=== PATIENT | male | born 1980 ===

== ENCOUNTER 2024-05-31 17:50 | Emergency (ER) | payer OTHER ==
[~2024-05-31] VITALS: Ht 172.7 cm; Wt 107.2 kg
[2024-05-31] MEDS ORDERED: AMOXICILLIN500 MG PO (20:40)
[2024-05-31] MEDS ORDERED: AMOXICILLIN 500 MG HOME.PACK PO ONE (20:45)
[2024-05-31 20:52] VITALS: BP 127/85
== END 2024-05-31 20:52 | disposition home or self-care (01) ==
LOC: ED 17:50
DX: J02.0 Streptococcal pharyngitis (principal)
CPT/HCPCS: 87651; 99282; U0002